=== PATIENT | female | born 1990 | race African-American/Black ===

== ENCOUNTER 2016-10-16 08:04 | Emergency (ER) | payer OTHER ==
[~2016-10-16] VITALS: Ht 175.3 cm; Wt 103.0 kg
[2016-10-16 08:04] VITALS: BP 148/103; PULSE 98; RESP 16; TEMP 99.2; O2SAT 100
[~2016-10-16 08:04] MED LIST: IBUP-232 PO
--- NOTE | 2016-10-16 08:27 | PD ---
HPI Chief Complaint: Cold / Flu Symptoms Time Seen by Provider: 08:16 Travel History International Travel<30 days: No Contact w/Intl Traveler<30days: No Traveled to known affect area: No History of Present Illness HPI Is a 25-year-old woman who presents to the emergency department complaining of congestion, some nonproductive cough, headache, eye pain, ongoing for the past 2 days or so. No definite sick contacts. No definite fevers or chills. No other complaints. She has some chronic constipation. No other past medical history. History Past Medical History Medical History: Denies Significant Hx Tetanus Vaccination: Unknown LMP: CURRENTLY ON-STATES BLEEDING X 2-3 WEEKS Social History Alcohol Use: No Tobacco Use: No Allergies-Medications (Allergen,Severity, Reaction): Coded Allergies: No Known Allergies (Unverified , 10/16/16) Reported Meds & Prescriptions Reported Meds & Active Scripts Active No Active Prescriptions or Reported Medications Review of Systems Except as stated in HPI: all other systems reviewed are Neg Physical Exam Narrative GENERAL: Well-appearing 25-year-old woman, no acute distress. SKIN: Warm and dry. HEAD: Atraumatic. Normocephalic. EYES: Pupils equal and round. No scleral icterus. No injection or drainage. Minimal injection. ENT: No nasal bleeding or discharge. Mucous membranes pink and moist. TMs normal, throat normal. NECK: Trachea midline. No JVD. Mild anterior cervical adenopathy. No meningismus. CARDIOVASCULAR: Regular rate and rhythm. No murmur appreciated. RESPIRATORY: No accessory muscle use. Clear to auscultation. Breath sounds equal bilaterally. GASTROINTESTINAL: Abdomen soft, non-tender, nondistended. Hepatic and splenic margins not palpable. MUSCULOSKELETAL: No obvious deformities. Data Data Last Documented VS Vital Signs Date Time Temp Pulse Resp B/P Pulse Ox O2 Delivery O2 Flow Rate FiO2 10/16/16 08:04 99.2 98 16 148/103 100 Orders Naproxen (Naprosyn) (10/16/16 08:30) [facility] Medical Decision Making Medical Screen Exam Complete: Yes Emergency Medical Condition: Yes Differential Diagnosis URI, conjunctivitis, meningitis, other Narrative Course Medical decision making While 25-year-old with cough congestion headache I pain likely viral URI. Looks well. Recommended supportive treatment. Diagnosis Primary Impression: Viral URI with cough Additional Instructions: Use [id number] analgesics as needed for comfort. Follow up with her primary doctor for not well in 5-7 days. Return to the emergency department for any worsening headache, any trouble breathing, or any other new or worsening symptoms. Scripts No Active Prescriptions or Reported Meds Disposition: 01 DISCHARGE HOME Condition: Stable Dale Castillo MD Oct 16, 2016 08:27
[2016-10-16] MEDS ORDERED: NAPROXEN 500 MG TAB PO ONE (08:30)
== END 2016-10-16 08:46 | disposition home or self-care (01) ==
LOC: PHED 08:04
DX: J06.9 Acute upper respiratory infection, unspecified (principal); K59.09 Other constipation
CPT/HCPCS: 99283